=== PATIENT | male | born 1980 | race American Indian/Alaskan Native ===

== ENCOUNTER 2016-12-19 18:36 | Emergency (ER) | payer SELFPAY ==
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
== END 2016-12-19 22:00 | disposition left against medical advice (07) ==
LOC: ED 18:36
DX: R07.81 Pleurodynia (principal); Z53.21 Procedure and treatment not carried out due to patient leaving prior to being seen by health care provider; Y08.89XA Assault by other specified means, initial encounter; Y93.9 Activity, unspecified; Y92.9 Unspecified place or not applicable; Y99.9 Unspecified external cause status

== ENCOUNTER 2016-12-20 12:27 | Emergency (ER) | payer SELFPAY ==
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
[2016-12-20 18:07] VITALS: BP 137/62
== END 2016-12-20 18:05 | disposition home or self-care (01) ==
LOC: ED 12:27
DX: S22.31XA Fracture of one rib, right side, initial encounter for closed fracture (principal); J45.909 Unspecified asthma, uncomplicated; F14.10 Cocaine abuse, uncomplicated; F12.10 Cannabis abuse, uncomplicated; F33.9 Major depressive disorder, recurrent, unspecified; Y04.0XXA Assault by unarmed brawl or fight, initial encounter; Y93.89 Activity, other specified; Y99.8 Other external cause status; Y92.89 Other specified places as the place of occurrence of the external cause
CPT/HCPCS: 99282

== ENCOUNTER 2017-03-29 03:41 | Emergency (ER) | payer SELFPAY ==
[2017-03-29] MEDS ORDERED: MOTRIN PO ONE (07:07)
--- NOTE | 2017-03-29 08:35 | XRay Report ---
RIGHT RIBS, 3 VIEWS: History: pain. Healing, nondisplaced right lateral rib fractures are identified at the eighth and ninth levels. There is moderate calcified callus bridging the fracture sites but the fracture lines remain visible. The remaining right ribs are intact. The right lung is well-aerated. IMPRESSION: Subacute, healing right lateral rib fractures the eighth and ninth levels. These are unchanged in position or alignment since 12/19/16.
[2017-03-29] MEDS ORDERED: TORADOL IM ONE (08:59)
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
[2017-03-29 09:07] VITALS: BP 129/74
== END 2017-03-29 09:10 | disposition home or self-care (01) ==
LOC: ED 03:41
DX: R07.81 Pleurodynia (principal); F32.9 Major depressive disorder, single episode, unspecified; F14.10 Cocaine abuse, uncomplicated; F17.210 Nicotine dependence, cigarettes, uncomplicated; J45.909 Unspecified asthma, uncomplicated
CPT/HCPCS: 71101; 96372; 99283; J1885

== ENCOUNTER 2017-08-10 19:02 | Emergency (ER) | payer SELFPAY ==
[2017-08-10] MEDS ORDERED: NACL 0.9% 1000 ML 1,000 ML IV ONE (19:33)
[2017-08-10 20:21] LABS: Basophils % (Auto) 0.4 % (0.0-1.8); Eosinophils % (Auto) 1.9 % (0.0-4.3); Hematocrit 43.7 % (35.5-45.6); Hemoglobin 15.1 gm/dl (11.8-15.2); Mean Corpuscular HGB Conc 35 % (32-34); Mean Corpuscular Hemoglobin 34 pg (28-32); Mean Corpuscular Volume 99 fl (84-94); Platelet Count 181 K/mm3 (140-440); Red Blood Count 4.42 M/mm3 (3.65-5.03); Red Cell Distribution Width 12.6 % (13.2-15.2); White Blood Count 10.7 K/mm3 (4.5-11.0)
[2017-08-10 20:31] LABS: Alanine Aminotransferase 17 units/L (7-56); Albumin 4.6 g/dL (3.9-5); Albumin/Globulin Ratio 1.6 %; Alkaline Phosphatase 75 units/L (35-129); Anion Gap 22 mmol/L; BUN/Creatinine Ratio 10; Blood Urea Nitrogen 8 mg/dL (9-20); Calcium 9.3 mg/dL (8.4-10.2); Carbon Dioxide 25 mmol/L (22-30); Chloride 100.2 mmol/L (98-107); Glucose 83 mg/dL (75-100); Lipase 19 units/L (13-60); Potassium 3.9 mmol/L (3.6-5.0); Sodium 143 mmol/L (137-145); Total Protein 7.4 g/dL (6.3-8.2)
[2017-08-10 20:32] LABS: INR 0.92 (0.87-1.13)
[2017-08-11 06:07] VITALS: BP 124/67
[2017-08-11] MEDS ORDERED: ZOFRAN IV ONE (06:12)
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
[2017-08-11] MEDS ORDERED: NACL 0.9% 1000 ML 1,000 ML ONE (06:23)
--- NOTE | 2017-08-11 07:44 | XRay Report ---
Chest 2 views: History: Cough. Findings: Normal cardiomediastinal silhouette. Trachea is midline. No consolidation, pneumothorax or pleural effusion. Impression: No acute cardiopulmonary findings.
== END 2017-08-11 07:59 | disposition home or self-care (01) ==
LOC: ED 19:02
DX: B34.9 Viral infection, unspecified (principal); R04.0 Epistaxis; R11.0 Nausea; R05 Cough; F32.9 Major depressive disorder, single episode, unspecified; J45.909 Unspecified asthma, uncomplicated; F14.10 Cocaine abuse, uncomplicated; F17.200 Nicotine dependence, unspecified, uncomplicated
CPT/HCPCS: 36415; 71020; 80053; 83690; 85025; 85610; 85730; 86850; 86900; 86901; 93005; 93010; 96361; 96374; 99284; J2405; J7030

== ENCOUNTER 2019-03-30 16:15 | Emergency (ER) | payer OTHER ==
--- NOTE | 2019-03-30 17:20 | Emergency Department Report ---
Blank Doc - Documentation Documentation: Patient c/o back pain left flank and lt abdomen started 2 days ago no urinary symptoms. No fever or chills, No Hematuria Pt with + left Cva Tenderness VSS afeb Urine, labs, CT scan
[2019-03-30 18:03] LABS: Basophils # (Auto) 0.1 K/mm3 (0.0-0.1); Basophils % (Auto) 0.5 % (0.0-1.8); Eosinophils # (Auto) 0.6 K/mm3 (0.0-0.4); Eosinophils % (Auto) 5.2 % (0.0-4.3); Lymphocytes # (Auto) 2.7 K/mm3 (1.2-5.4); Lymphocytes % (Auto) 24.4 % (13.4-35.0); Mean Corpuscular HGB Conc 36 % (32-34); Mean Corpuscular Volume 96 fl (84-94); Monocytes # (Auto) 0.9 K/mm3 (0.0-0.8); Monocytes % (Auto) 8.2 % (0.0-7.3); Platelet Count 135 K/mm3 (140-440); Red Blood Count 4.45 M/mm3 (3.65-5.03); Red Cell Distribution Width 12.6 % (13.2-15.2)
[2019-03-30 18:11] LABS: Hematocrit 42.8 % (35.5-45.6); Hemoglobin 15.3 gm/dl (11.8-15.2)
[2019-03-30 18:25] LABS: Alanine Aminotransferase 22 units/L (7-56); Albumin 3.7 g/dL (3.9-5); BUN/Creatinine Ratio 19; Blood Urea Nitrogen 19 mg/dL (9-20); Calcium 9.1 mg/dL (8.4-10.2); Hemolysis Index 36
[2019-03-30] MEDS ORDERED: TORADOL IM ONE (18:55)
[2019-03-30] MEDS ORDERED: TORADOL ONE (18:58)
[2019-03-30 19:20] LABS: Bilirubin,Urine NEG (Negative); Blood,Urine NEG (Negative); Color,Urine Colorless (Yellow); Protein,Urine <15 mg/dL mg/dL (Negative); RBC,Urine < 1.0 /HPF (0.0-6.0); Urobilinogen,Urine < 2.0 mg/dL (<2.0)
[2019-03-30] MEDS ORDERED: NACL 0.9% 1000 ML 1,000 ML IV ONE (20:39)
[2019-03-30] MEDS ORDERED: ZOFRAN IV ONE (20:39)
--- NOTE | 2019-03-30 20:42 | Emergency Department Report ---
ED General Adult HPI - General Chief complaint: Dyspnea/Respdistress Stated complaint: SOB/LOW LT BACK PAIN Time Seen by Provider: 03/30/19 17:15 Source: patient Mode of arrival: Ambulatory Limitations: No Limitations - History of Present Illness Initial comments: Patient is a 38-year-old male presents to the emergency room with complaints of left lower back pain that radiates to the left lower quadrant and left groin that began yesterday morning. he states the pain is sharp. he has mild nausea. He said a few days ago he had diarrhea but that has since resolved. pt states he has had some urinary frequency. Denies any emesis, fever, dysuria, h ematuria. He denies any history of kidney stones. Sates his last bowel movement was yesterday morning and he states it was normal. 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 He has a past medical history of asthma he denies any allergies medications. Severity scale (0 -10): 8 - Related Data Previous Rx's Medication Instructions Recorded Last Taken Type ALBUTEROL Inhaler (OR & NICU) 2 puff IH QID PRN #1 inhalation 05/22/14 Unknown Rx [ProAir HFA Inhaler] Amoxicillin [Trimox CAP] 500 mg PO Q8H #30 capsule 05/22/14 Unknown Rx Prednisone [Prednisone 10 mg 10 mg PO .TAPER #1 tab.ds.pk 05/22/14 Unknown Rx (6-Day Pack, 21 Tabs)] Etodolac [Etodolac ER] 400 mg PO BID PRN #20 tab.er.24h 12/20/16 Unknown Rx Diclofenac Potassium 50 mg PO BID #14 tablet 03/29/17 Unknown Rx Acetaminophen 500 mg PO Q6HR #30 tablet 08/11/17 Unknown Rx Baclofen [Lioresal] 10 mg PO QHS PRN #10 tab 03/30/19 Unknown Rx Ibuprofen [Motrin 600 MG tab] 600 mg PO Q8H PRN #14 tablet 03/30/19 Unknown Rx Allergies Allergy/AdvReac Type Severity Reaction Status Date / Time No Known Allergies Allergy Verified 03/30/19 16:20 ED Review of Systems ROS: Stated complaint: SOB/LOW LT BACK PAIN Other details as noted in HPI Comment: All other systems reviewed and negative ED Past Medical Hx - Past Medical History Hx Psychiatric Treatment: Yes (manic depression, cocaine abuse) Hx Asthma: Yes Additional medical history: Rib fracture - Surgical History Past Surgical History?: No - Social History Smoking Status: Current Every Day Smoker Substance Use Type: Alcohol - Medications Home Medications: Home Medications Medication Instructions Recorded Confirmed Last Taken Type ALBUTEROL Inhaler (OR & NICU) 2 puff IH QID PRN #1 inhalation 05/22/14 Unknown Rx [ProAir HFA Inhaler] Amoxicillin [Trimox CAP] 500 mg PO Q8H #30 capsule 05/22/14 Unknown Rx Prednisone [Prednisone 10 mg 10 mg PO .TAPER #1 tab.ds.pk 05/22/14 Unknown Rx (6-Day Pack, 21 Tabs)] Etodolac [Etodolac ER] 400 mg PO BID PRN #20 tab.er.24h 12/20/16 Unknown Rx Diclofenac Potassium 50 mg PO BID #14 tablet 03/29/17 Unknown Rx Acetaminophen 500 mg PO Q6HR #30 tablet 08/11/17 Unknown Rx Baclofen [Lioresal] 10 mg PO QHS PRN #10 tab 03/30/19 Unknown Rx Ibuprofen [Motrin 600 MG tab] 600 mg PO Q8H PRN #14 tablet 03/30/19 Unknown Rx ED Physical Exam - General Limitations: No Limitations General appearance: alert, in no apparent distress - Head Head exam: Present: atraumatic, normocephalic - Eye Eye exam: Present: normal appearance, PERRL - ENT ENT exam: Present: mucous membranes moist - Respiratory Respiratory exam: Present: normal lung sounds bilaterally. Absent: respiratory distress, wheezes, rales, rhonchi, stridor, chest wall tenderness, accessory muscle use, decreased breath sounds, prolonged expiratory - Cardiovascular Cardiovascular Exam: Present: regular rate, normal rhythm, normal heart sounds. Absent: systolic murmur, diastolic murmur, rubs, gallop - GI/Abdominal GI/Abdominal exam: Present: soft, normal bowel sounds. Absent: distended, tenderness, guarding, rebound, rigid - Back Exam Back exam: Present: normal inspection, full ROM, CVA tenderness (L), paraspinal tenderness (left sided lumbar paraspinal muscular TTP, no midline tenderness, no step offs, no deformities). Absent: vertebral tenderness - Neurological Exam Neurological exam: Present: alert, oriented X3, CN II-XII intact, normal gait. Absent: motor sensory deficit - Psychiatric Psychiatric exam: Present: normal affect, normal mood - Skin Skin exam: Present: warm, dry, intact ED Course Vital Signs 03/30/19 03/30/19 16:24 21:47 Temperature 98.6 F 98.3 F Pulse Rate 71 51 L Respiratory 20 14 Rate Blood Pressure 138/80 Blood Pressure 131/52 [Left] O2 Sat by Pulse 99 99 Oximetry ED Medical Decision Making - Lab Data Result diagrams: 03/30/19 17:47 03/30/19 17:47 - Radiology Data Radiology results: report reviewed CT abdomen pelvis w con INDICATION / CLINICAL INFORMATION: Left CVA tenderness, abdominal/flank pain. TECHNIQUE: The patient received 100 cc Omnipaque [address] scans at this location are performed using CT dose reduction for ALARA by means of automated exposure control. COMPARISON: None available. FINDINGS: ABDOMEN: The liver, gallbladder, bile ducts, pancreas, spleen, adrenal glands and left kidney demonstrate no significant abnormality. There is a subcentimeter cyst in the mid right kidney laterally. I see no evidence of bowel obstruction, wall thickening or free air. No adenopathy is identified. The lung bases are clear. PELVIS: The distal ureters, urinary bladder and prostate gland are normal. A normal appendix is present and there is no evidence of diverticulitis. No abnormal mass or fluid collection is seen. I do not identify a hernia. No acute osseous abnormality is seen. IMPRESSION: No acute abnormality. Signer Name: Yordan Lorenzo MD Signed: 03/30/2019 9:41 PM Workstation Name: [id number] Transcribed By: RT Dictated By: Yordan Lorenzo MD Electronically Authenticated By: Yordan Lorenzo MD Signed Date/Time: 03/30/192140 - Medical Decision Making Patient is a 38-year-old male presents to the emergency room with complaints of left lower back pain that radiates to the left lower quadrant and left groin that began yesterday morning. he states the pain is sharp. he has mild nausea. He said a few days ago he had diarrhea but that has since resolved. pt states he has had some urinary frequency. Denies any emesis, fever, dysuria, hematuria. He denies any history of kidney stones. Sates his last bowel movement was yesterday morning and he states it was normal. 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 He has a past medical history of asthma he denies any allergies medications. VSS. on exam: left CVAT, no abd tenderness to palpation, left sided lumbar paraspinal muscular TTP, no midline tenderness, no step offs, no deformities, no focal neuro deficits. labs WNL. UA is normal. CT abd pelvis without contrast with no acute process. pt given anti-inflammatory and baclofen for back strain. advised to please take medication as prescribed as needed. Do not drive or operate heavy machinery while taking muscle relaxer due to potential for drowsiness. Use ice, rest, heat, epsom salt bath. follow up with a primary care doctor in the next 2-3 days. Return to the emergency room for any new or worsening symptoms. - Differential Diagnosis nephrolithiasis, muscle strain, UTI Critical care attestation.: If time is entered above; I have spent that time in minutes in the direct care of this critically ill patient, excluding procedure time. ED Disposition Clinical Impression: Left flank pain Back pain Qualifiers: Back pain location: low back pain Chronicity: acute Back pain laterality: left Sciatica presence: without sciatica Qualified Code(s): M54.5 - Low back pain Disposition: DC-01 TO HOME OR SELFCARE Is pt being admited?: No Does the pt Need Aspirin: No Condition: Stable Instructions: Muscle Strain (ED) Additional Instructions: Please take medication as prescribed as needed. Do not drive or operate heavy machinery while taking muscle relaxer due to potential for drowsiness. Use ice, rest, heat, epsom salt bath. follow up with a primary care doctor in the next 2-3 days. Return to the emergency room for any new or worsening symptoms. Prescriptions: Baclofen [Lioresal] 10 mg PO QHS PRN #10 tab PRN Reason: Muscle Spasm Ibuprofen [Motrin 600 MG tab] 600 mg PO Q8H PRN #14 tablet PRN Reason: Pain Referrals: [facility] [Provider Group] - 2-3 Days [facility] [Outside] - 2-3 Days Forms: Work/School Release Form(ED) Time of Disposition: 21:53 Print Language: STATELESS
--- NOTE | 2019-03-30 21:45 | Cat Scan Report ---
CT abdomen pelvis w con INDICATION / CLINICAL INFORMATION: Left CVA tenderness, abdominal/flank pain. TECHNIQUE: The patient received 100 cc Omnipaque [address] scans at this location are performed using CT dose reduction for ALARA by means of automated exposure control. COMPARISON: None available. FINDINGS: ABDOMEN: The liver, gallbladder, bile ducts, pancreas, spleen, adrenal glands and left kidney demonst rate no significant abnormality. There is a subcentimeter cyst in the mid right kidney laterally. I s ee no evidence of bowel obstruction, wall thickening or free air. No adenopathy is identified. The tee ng bases are clear. PELVIS: The distal ureters, urinary bladder and prostate gland are normal. A normal appendix is prese nt and there is no evidence of diverticulitis. No abnormal mass or fluid collection is seen. I do not identify a hernia. No acute osseous abnormality is seen. IMPRESSION: No acute abnormality. Signer Name: Yordan Lorenzo MD Signed: 03/30/2019 9:41 PM Workstation Name: [id number]
[2019-03-30 21:47] VITALS: BP 131/52
== END 2019-03-30 22:12 | disposition home or self-care (01) ==
LOC: ED 16:15
DX: M54.5 Low back pain (principal); R10.9 Unspecified abdominal pain; R11.0 Nausea; F32.9 Major depressive disorder, single episode, unspecified; J45.909 Unspecified asthma, uncomplicated; F14.10 Cocaine abuse, uncomplicated; F17.200 Nicotine dependence, unspecified, uncomplicated; Z79.899 Other long term (current) drug therapy
CPT/HCPCS: 36415; 74177; 80053; 81001; 83690; 85025; 96372; 96374; 99284; J1885; J2405; J7030; Q9967